=== PATIENT | female | born 1975 | race Two or more races ===

== ENCOUNTER 2021-11-06 09:15 | Emergency (ER) | payer OTHER, SELFPAY ==
--- NOTE | ~2021-11-06 | US_ITS ---
EXAMINATION: US VENOUS ULTRASOUND WITH DOPPLER LOWER EXTREMITY, RIGHT CLINICAL INFORMATION: Calf pain. COMPARISON: None TECHNIQUE: Ultrasound of the deep veins is performed from the hip to the calf with compression sonography and color and pulse Doppler assessment. Spectral analysis with color-flow imaging is performed. FINDINGS: There is normal venous compression and respiratory variation and augmented flow. The visualized common femoral vein, superficial femoral vein, profunda femoral vein, popliteal vein, and the trifurcation region shows no evidence of deep venous thrombosis. There is no significant popliteal fossa cyst. If the patient's symptoms persist, followup ultrasound in 5 days 7 days might be of value to exclude proximal propagation from a non-visualized calf vein. US/US venous duplex LE RT IMPRESSION: No DVT demonstrated in the right lower extremity.
--- NOTE | ~2021-11-06 | XR_ITS ---
EXAMINATION: XR KNEE, RIGHT CLINICAL INFORMATION: Pain and swelling COMPARISON: None TECHNIQUE: Four views of the right knee. FINDINGS: Bones and soft tissues are normal. No fracture or joint effusion. Alignment is anatomic. Joint spaces are well maintained. No abnormal soft tissue calcification. XR/XR knee RT 4V IMPRESSION: Normal right knee.
[2021-11-06 09:19] VITALS: BP 168/106; PULSE 66; RESP 18; TEMP 36.2; O2SAT 98; BMI 33.7
[2021-11-06 11:31] VITALS: BP 165/97; PULSE 60; RESP 18
--- NOTE | 2021-11-06 11:41 | ED_ITS ---
HPI - Extremity Problem General Chief complaint: Extremity Problem Stated complaint: R knee pain Time Seen by Provider: 11/06/21 10:10 History of Present Illness HPI Narrative: Patient complains of right knee pain, right calf pain, and frequent tingling and numbness in the right foot She has had occasional pain in her right lower back but she has no back pain today Related Data Previous Rx's Medication Instructions Recorded hydrocodone 5 mg-acetaminophen 325 1 tab PO Q6H PRN #14 tab 11/06/21 mg tablet hydrocodone 5 mg-acetaminophen 325 1 tab PO Q6H PRN #14 tab 11/06/21 mg tablet Allergies Allergy/AdvReac Type Severity Reaction Status Date / Time oxycodone [From Percocet] Allergy Rash Verified 11/06/21 09:22 Sulfa (Sulfonamide Allergy Rash Verified 11/06/21 09:22 Antibiotics) Review of Systems Review of Systems: Positive for right knee pain right foot pain and tingling i n the foot with occasional back pain Negatives no fever no chills no dizziness no weakness no headache no neck pain no chest pain no abdominal pain no changes to bowel or bladder no weakness PMFSH Past Medical History Source: nursing notes reviewed Medical History (Updated 11/07/21 @ 00:02 by Debra Underwood) HTN (hypertension) Social History Social History Advance Directives: No Advance Directives Information Provided: No Physical Exam Vital Signs: Vital Signs: Last Vital Signs Temp 97.1 F 11/06/21 09:19 Pulse 60 11/06/21 11:31 Resp 18 11/06/21 11:31 BP 165/97 H 11/06/21 11:31 Pulse Ox 98 11/06/21 09:19 BMI result Body Mass Index 33.7 General appearance is no acute distress Head normocephalic atraumatic Neck is supple Respiratory no distress Question chest is clear to auscultation bilateral Heart no murmur Extremities is full range of motion x4 there is some mild tenderness of the ri ght knee, the foot has full range of motion and normal motor with full strength and normal sensation The right calf is also tender Course Course Course Narrative: Patient with right knee pain right calf pain and tingling in the right foot had full range of motion in the foot with no tenderness had an ultrasound of the right calf which was negative an x-ray of the right knee was normal and the patient is advised she may have sciatica she may have a problem with her knee and to follow with both her doctor and the orthopedist, she ambulated with a limb from the emergency room Discharge Plan Discharge Clinical Impression: Radiculopathy of leg, Pain in right knee Patient Disposition: Home, Self-Care Additional Instructions: X-ray of the right knee was normal and ultrasound of the right leg did not show any blood clot The tingling in her leg may be from a pinched nerve so follow with primary care doctor for possible pinched nerve For the right knee pain follow with orthopedist Return any time any worse condition or any concerns Prescriptions: New hydrocodone-acetaminophen 5-325 mg tablet 1 tab PO Q6H PRN (Reason: pain) Qty: 14 0RF Rx Instructions: Narcotic, no driving for 6 hours after taking this medication hydrocodone-acetaminophen 5-325 mg tablet 1 tab PO Q6H PRN (Reason: pain) Qty: 14 0RF Rx Instructions: Narcotic may cause drowsiness, no driving for 6 hours after taking Referrals: Fernandez Hatfield MD [Physician] - 2 weeks (Right knee pain) Stand Alone Forms: Work/School Release Interventions: ED Discharge Assessment Last Done: 11/06/21 12:00 Discharge Date/Time: 11/06/21 12:01
--- NOTE | 2021-11-06 11:59 | PC.NURSE ---
PROVIDER UPDATED PATIENT ON RESULTS OF US DISPO PLAN IS TO DC HOME. PT AGREEABLE TO PLAN. SCRIPT SENT FOR PAIN MANAGEMENT. PT AGREEABLE TO THIS PLAN. AMBULATORY OUT OF ER, GAIT STEADY
== END 2021-11-06 12:01 | disposition home or self-care (01) ==
PROVIDERS: Emergency Provider Emergency Medicine
DX: M54.16 Radiculopathy, lumbar region (principal); M25.561 Pain in right knee; I10 Essential (primary) hypertension
CPT/HCPCS: 73564; 93971; 99284

== ENCOUNTER 2022-07-21 11:48 | Emergency (ER) | payer OTHER, SELFPAY ==
--- NOTE | ~2022-07-21 | US_ITS ---
EXAMINATION: US VENOUS ULTRASOUND WITH DOPPLER LOWER EXTREMITY, LEFT CLINICAL INFORMATION: Leg pain COMPARISON: November 06, 2021 TECHNIQUE: Ultrasound of the deep veins is performed from the hip to the calf with compression sonography and color and pulse Doppler assessment. Spectral analysis with color-flow imaging is performed. FINDINGS: There is normal venous compression and respiratory variation and augmented flow. The visualized common femoral vein, superficial femoral vein, profunda femoral vein, popliteal vein, and the trifurcation region shows no evidence of deep venous thrombosis. There is no significant popliteal fossa cyst. No popliteal artery aneurysm. US/US venous duplex LE LT IMPRESSION: No acute DVT demonstrated in the left lower extremity.
--- NOTE | ~2022-07-21 | XR_ITS ---
EXAMINATION: XR CHEST CLINICAL INFORMATION: Chest pain. COMPARISON: None TECHNIQUE: Frontal view of the chest was obtained. FINDINGS: No significant abnormality is noted involving the heart, lungs, mediastinum, bony thorax or soft tissues. XR/XR chest 1V IMPRESSION: No acute cardiopulmonary process.
[2022-07-21 12:03] VITALS: BP 177/96; PULSE 61; RESP 18; TEMP 36.8; O2SAT 96; BMI 34.7
--- NOTE | 2022-07-21 12:03 | ED.CHESTPAIN ---
HPI - Chest Pain General Chief Complaint: Chest Pain <Larisa Lebron MD - Last Filed: 07/21/22 12:11> Stated Complaint: Chest Pain High Blood Pressure <Larisa Lebron MD - Last Filed: 07/21/22 12:11> Time Seen by Provider: 07/21/22 17:14 <Larisa Lebron MD - Last Filed: 07/21/22 12:11> Source: patient <Bismark Fenton MD - Last Filed: 07/22/22 00:47> Mode of arrival: ambulatory <Bismark Fenton MD - Last Filed: 07/22/22 00:47> Limitations: no limitations <Bismark Fenton MD - Last Filed: 07/22/22 00:47> History of Present Illness HPI narrative: Patient with history of hypertension after on amlodipine 10 mg daily and lisinopril comes here for elevated blood pressure for last 2 days with chest pain body aches . Patient does have history of anxiety and able to sleep as increased stress at home no headache <Bismark Fenton MD - Last Filed: 07/22/22 00:47> Related Data Home Medications: Previous Rx's Medication Instructions Recorded hydrocodone 5 mg-acetaminophen 325 1 tab PO Q6H PRN pain #14 tabs /25/22 mg tablet hydrocodone 5 mg-acetaminophen 325 1 tab PO Q6H PRN pain #14 tabs /25/22 mg tablet lorazepam 1 mg tablet (Ativan) 1 mg PO BEDTIME PRN anxiety #10 07/21/22 tabs <Larisa Lebron MD - Last Filed: 07/21/22 12:11> Allergies/Adverse Reactions: Allergies Allergy/AdvReac Type Severity Reaction Status Date / Time oxycodone [From Percocet] Allergy Rash Verified 07/21/22 12:03 Sulfa (Sulfonamide Allergy Rash Verified 07/21/22 12:03 Antibiotics) <Larisa Lebron MD - Last Filed: 07/21/22 12:11> Review of Systems Review of Systems: Yes all other systems are reviewed and are negative <Bismark Fenton MD - Last Filed: 07/22/22 00:47> PMFSH Past Medical History Medical History: Medical History HTN (hypertension) <Larisa Lebron MD - Last Filed: 07/21/22 12:11> Social History Social History: Social History Alcohol intake: never Smoked in Last 30 Days: No Advance Directives: No Advance Directives Information Provided: Yes Patient : No <Larisa Lebron MD - Last Filed: 07/21/22 12:11> Physical Exam Vital Signs: Vital Signs: Last Vital Signs Temp 98.3 F 07/21/22 19:33 Pulse 62 07/21/22 19:33 Resp 20 07/21/22 19:33 BP 165/97 H 07/21/22 19:33 Pulse Ox 98 07/21/22 19:33 O2 Del Method 07/21/22 19:33 BMI result Body Mass Index 34.7 <Larisa Lebron MD - Last Filed: 07/21/22 12:11> Vital Signs: Last Vital Signs Temp 98.3 F 07/21/22 19:33 Pulse 62 07/21/22 19:33 Resp 20 07/21/22 19:33 BP 165/97 H 07/21/22 19:33 Pulse Ox 98 07/21/22 19:33 O2 Del Method 07/21/22 19:33 BMI result Body Mass Index 34.7 <Bismark Fenton MD - Last Filed: 07/22/22 00:47> Appearance: Alert. Oriented X3. No acute distress. And she Eyes: PERRLA, No Nystagmus ENT: Pharynx normal. Oral Mucosa moist Neck: Normal inspection. Neck supple. CVS: Normal heart rate and rhythm. Pulses normal. Respiratory: No respiratory distress. Equal air entry bilateral, no wheezing/rales/rhonchi Abdomen: Soft and nontender. Bowel sounds are present, no mass palpable, no CVA tenderness Skin: Skin warm and dry. Normal skin color. Normal skin turgor. Extremities: No lower extremity edema. No calf tenderness Neuro: Oriented X 3. No motor deficit. No sensory deficit.No cerebellar signs , cranial nerves II-XII intact <Bismark Fenton MD - Last Filed: 07/22/22 00:47> Course Course Course Narrative: rme 46-year-old female been complaining of some chest pain that is been ongoing the pain is sharp. It comes and goes. Lasts for about 5 minutes and goes away. Not associated with deep breath. Not associated with any fever chills coughing congestion. She has a history of hypertension. No history of diabetes, high cholesterol, smoking, mi, family history of AR. Not on control pills. No history of blood clots in the past. Positive swelling to the left leg. Patient from home. No risk stratification done in the past. Does not think she is . Labs ordered. Patient sent back to the waiting room <Larisa Lebron MD - Last Filed: 07/21/22 12:11> Medications Administered Discontinued Medications Generic Name Dose Route Start Last Admin Trade Name Freq PRN Reason Stop Dose Admin Lisinopril 20 mg 07/21/22 17:39 07/21/22 17:49 Lisinopril 20 Mg Tablet PO 07/21/22 17:40 20 mg ONCE ONE Administration Protocol Lorazepam 1 mg 07/21/22 19:40 07/21/22 19:57 Lorazepam 1 Mg Tablet PO 07/21/22 19:41 1 mg ONCE ONE Administration <Larisa Lebron MD - Last Filed: 07/21/22 12:11> Medications Administered Discontinued Medications Generic Name Dose Route Start Last Admin Trade Name Freq PRN Reason Stop Dose Admin Lisinopril 20 mg 07/21/22 17:39 07/21/22 17:49 Lisinopril 20 Mg Tablet PO 07/21/22 17:40 20 mg ONCE ONE Administration Protocol Lorazepam 1 mg 07/21/22 19:40 07/21/22 19:57 Lorazepam 1 Mg Tablet PO 07/21/22 19:41 1 mg ONCE ONE Administration <Bismark Fenton MD - Last Filed: 07/22/22 00:47> Medical Decision Making Medical Decision Making MDM Narrative: Patient increased anxiety and stress came here for atypical chest pain for few days noted to have high blood pressure improved after lisinopril extra dose, labs are stable will give her Ativan p.o. to decrease anxiety discharge the patient home advised to follow with PCP <Bismark Fenton MD - Last Filed: 07/22/22 00:47> Differential Diagnoses: Differential diagnosis (acs/pulmonary embolus/anxiety/ hypertension) <Bismark Fenton MD - Last Filed: 07/22/22 00:47> Lab Attestation: I reviewed the patient's lab results. <Bismark Fenton MD - Last Filed: 07/22/22 00:47> Independent interpretation of EKG, rhythm strip, radiology study: Independent interp EKG,rhythm strip, radiology study I performed an independent interpretation of the: EKG Sinus bradycardia heart rate 58 bpm normal interval normal axis no acute ST-T ischemia <Bismark Fenton MD - Last Filed: 07/22/22 00:47> Discharge Plan Discharge Clinical Impression: Atypical chest pain, Hypertension, Anxiety <Larisa Lebron MD - Last Filed: 07/21/22 12:11> Patient Disposition: Home, Self-Care <Larisa Lebron MD - Last Filed: 07/21/22 12:11> Instructions: Chest Pain (ED), Generalized Anxiety Disorder (ED), Chronic Hypertension (ED) <Larisa Lebron MD - Last Filed: 07/21/22 12:11> Additional Instructions: Continue taking of blood pressure medication as prescribed by your PCP Medication for anxiety and sleep as prescribed Check blood pressure daily should be less than 130/80 <Larisa Lebron MD - Last Filed: 07/21/22 12:11> Prescriptions: New lorazepam [Ativan] 1 mg tablet 1 mg PO BEDTIME PRN (Reason: anxiety) Qty: 10 0RF No Action hydrocodone-acetaminophen 5-325 mg tablet 1 tab PO Q6H PRN (Reason: pain) Qty: 14 0RF Rx Instructions: Narcotic, no driving for 6 hours after taking this medication hydrocodone-acetaminophen 5-325 mg tablet 1 tab PO Q6H PRN (Reason: pain) Qty: 14 0RF Rx Instructions: Narcotic may cause drowsiness, no driving for 6 hours after taking <Larisa Lebron MD - Last Filed: 07/21/22 12:11> Stand Alone Forms: Work/School Release <Larisa Lebron MD - Last Filed: 07/21/22 12:11> Interventions: ED Discharge Assessment Last Done: 07/21/22 20:05 <Larisa Lebron MD - Last Filed: 07/21/22 12:11> Discharge Date/Time: 07/21/22 20:05 <Larisa Lebron MD - Last Filed: 07/21/22 12:11>
--- NOTE | 2022-07-21 12:08 | ECG_ITS ---
Test Reason : CHEST PAIN Blood Pressure : / mmHG Vent. Rate : 058 BPM Atrial Rate : 058 BPM P-R Int : 138 ms QRS Dur : 080 ms QT Int : 422 ms P-R-T Axes : 047 021 030 degrees QTc Int : 414 ms Sinus bradycardia Nonspecific ST abnormality Abnormal ECG No previous ECGs available Referred By: Larisa Lebron Electronically Signed By:MACARIO AVENDAÑO MD
[2022-07-21 12:47] LABS: MANUAL DIFF FLAG NO
[2022-07-21 12:49] LABS: Basophils Percent Auto 0.2 % (0-2); Eosinophils Absolute Auto 0.2 X10*3/uL (0.0-0.4); Eosinophils Percent Auto 1.6 % (0-4); Hematocrit 37.1 % (37.0-47.0); Imm Gran Abs Auto 0.04 X10*3/uL (0.00-0.03); Imm Gran Pct Auto 0.4 % (0.0-0.4); Lymphocytes Absolute Auto 2.9 X10*3/uL (1.2-4.9); Lymphocytes Percent Auto 31.7 % (20-40); Mean Platelet Volume 11.9 fL (9.4-12.3); Monocytes Absolute Auto 0.5 X10*3/uL (0.1-1.2); Monocytes Percent Auto 4.9 % (2-11); Neutrophils Absolute Auto 5.6 x10*3/uL (2.0-8.3); Neutrophils Percent Auto 61.2 % (45-73); Platelet Count 224 X10*3/uL (160-400); Red Blood Count 4.64 X10*6/uL (4.20-5.50); Red Cell Distribution Width 14.6 % (11.0-16.0); White Blood Count 9.1 X10*3/uL (4.8-10.8)
[2022-07-21 13:00] LABS: D Dimer High Sensitivity 156 NG/ML
[2022-07-21 13:01] LABS: COVID-19 Test Negative (Negative); IDNOW Serial# 55D5AD1C
[2022-07-21 13:03] LABS: Anion Gap 10 (12-20); Blood Urea Nitrogen 11 mg/dL (9-16); Calcium 9.3 mg/dL (8.4-10.2); Carbon Dioxide 30 mmol/L (22-29); Chloride 107 mmol/L (96-108); Creatinine Clr Calc Pharmacy 89.4; Estimated Glomerular Filt Rate > 60; Glucose Random 92 mg/dL (60-115); Potassium 3.8 mmol/L (3.3-5.1); Sodium 143 mmol/L (135-145)
[2022-07-21 13:10] LABS: Troponin-I High Sensitivity < 3.5 ng/L (<3.5-17.0)
[2022-07-21 13:17] LABS: HCG Quantitative < 2 mIU/mL
[2022-07-21 17:41] VITALS: BP 172/97; PULSE 64; RESP 18; TEMP 36.9; O2SAT 95
[2022-07-21] MEDS: lisinopriL 20 MG TABLET PO (17:49)
[2022-07-21 19:33] VITALS: BP 165/97; PULSE 62; RESP 20; TEMP 36.8; O2SAT 98
[2022-07-21] MEDS: LORazepam 1 MG TABLET PO (19:57)
== END 2022-07-21 20:05 | disposition home or self-care (01) ==
PROVIDERS: Emergency Medicine Emergency Medical Services; Emergency Provider Internal Medicine
DX: R07.89 Other chest pain (principal); I10 Essential (primary) hypertension; F41.1 Generalized anxiety disorder; F43.0 Acute stress reaction; R60.0 Localized edema; Z20.822 Contact with and (suspected) exposure to COVID-19; Z79.899 Other long term (current) drug therapy
CPT/HCPCS: 36415; 71045; 80048; 84484; 84702; 85025; 85379; 87635; 93005; 93971; 99284